=== PATIENT | male | born 1975 | race Caucasian/White ===

== ENCOUNTER → 2016-09-14 09:02 | Outpatient (CLI) | payer BC ==
[2016-05-14 12:44] VITALS: BMI 27.3
[~2016-09-14 09:02] MED LIST: ADVAIR 100/501 DISK INH; BENADRYL25 MG PO; BREO ELLIPTA 21 EACH; BUPROPION XL300 MG PO; CLARITIN 10 MG10 MG PO; COLCRYS0.6 MG PO; DICLOFENAC SODI50 MG PO; FLUTICASONE PRO16 GM NASAL; HYDROCODONE-APA1 TAB PO; KLONOPIN0.5 MG PO; LAMISIL250 MG PO; LEXAPRO10 MG PO; MELATONIN 3 MG1 TAB PO; PREVACID30 MG PO; PRINIVIL20 MG PO; PROAIR HFA8.5 GM INH; SINGULAIR10 MG PO; SPIRIVA RESPIMAT4 G1 INH; VOLTAREN100 GM TOPICAL
[2016-09-14 10:24] LABS: CREATININE - SERUM 1.2 mg/dL (0.6-1.3)
== END | disposition home or self-care (01) ==
LOC: D.CT 09-12 09:00 → D.RT 09-12 10:00 → D.CT 09:02
PROVIDERS: Internal Medicine Pulmonary Disease
DX: R93.8 Abnormal findings on diagnostic imaging of other specified body structures (principal)

== ENCOUNTER 2016-12-04 05:19 | Day surgery (SDC) | payer BC ==
[2016-12-03 14:54] LABS: HEMATOCRIT 39.5 % (42.0-54.0); HEMOGLOBIN 13.6 g/dL (13.5-17.5); MCH 30.4 pg (26.0-34.0); MCHC 34.4 g/dL (31.0-37.0); MCV 88.4 fL (80.0-100.0); MEAN PLATELET VOLUME 9.5 fL (7.4-10.4); RBC 4.47 10x6/uL (4.20-6.10); RDW 13.3 % (11.5-14.5); WBC 5.7 10x3/uL (4.8-10.8)
[~2016-12-04] VITALS: Ht 195.6 cm; Wt 104.3 kg
[2016-12-04 05:55] VITALS: BP 136/78; Ht 195.6 cm; Wt 104.3 kg
--- NOTE | 2016-12-11 10:25 | OP ---
PATIENT NAME: DOT GROVE MEDICAL RECORD: [id number] :79 LOCATION:D.OPS ADMISSION DATE: SURGEON: FATOUMATA MEDRANO MD DATE OF OPERATION: 12/04/2016 PREOPERATIVE DIAGNOSES: Left displaced proximal humerus fracture with greater tuberosity fracture. POSTOPERATIVE DIAGNOSES: Left displaced proximal humerus fracture with greater tuberosity fracture. PROCEDURE PERFORMED: Left open reduction and internal fixation of greater tuberosity proximal humerus fracture. SURGEON: Seth Medrano MD. ANESTHESIA: General with interscalene block for postop pain. CONDITION: The patient tolerated the procedure well, was transferred to the recovery room in stable condition. INDICATIONS: This is a 41-year-old gentleman that fell, landed on his left arm, had a displaced ____ greater tuberosity fracture. We discussed with him the options. He wanted to fix this. We discussed risks, benefits and alternatives including blood loss, scar, pain, need for further procedure, anesthesia risk, nerve, artery and vein injuries, PE, DVT, , and infection. He understood and wished to proceed. We also discussed nerve injuries, specifically the axillary nerve crosses it. OPERATIVE REPORT: The patient was taken to the operating room and placed in supine position. General anesthesia was obtained. The left arm was identified as the correct arm. He did receive an interscalene block in the preop holding area. In the operating room, he was placed in a beach chair position. He was prepped and draped in normal fashion. He received Ancef per protocol. Procedure was begun by making a lateral incision off of the tip of the acromion extending laterally. This was taken down. The deltoid was split bluntly. The axillary nerve was identified and elevated off the bone and then gently retracted. Proximal humerus plate was slid underneath the axillary nerve. I then proceeded to place a pin proximally and distally. Once the plate was in appropriate position, I then proceeded to fill the holes with screws. This was done pulling the piece into position with a #1 [place] wire sutures and pulled the piece down. Once this was verified on AP and lateral views, I then went ahead and just filled the screw holes. Having accomplished this, I took AP and lateral views, verifying the position of the plate, verified the reduction of the fracture. I also verified the axillary nerve crossing the plate. I copiously irrigated. I then closed with #1 Vicryl followed by 2-0 Vicryl, then 3-0 Prolene, half inch Steri-Strips and soft dressing was placed in a sling, awakened and transferred to the recovery room in stable condition, having tolerated the procedure well. TRANSINT:[id number] Voice Confirmation ID: [id number] DOCUMENT ID: [id number] OPERATIVE REPORT [id number] DOT GROVE, FATOUMATA BERRIOS MD at 1025 CC: [id number] DICTATION DATE: 12/04/16 0844 PROFESSIONAL MODEL: 12/04/16 1051 [facility] 12/04/16 [id number] [place] [address]
== END 2016-12-04 10:25 | disposition home or self-care (01) ==
LOC: D.OPS 05:19 → D.PAN 07:00 → D.OPS 09:30
PROVIDERS: Anesthesiology
DX: S42.252A Displaced fracture of greater tuberosity of left humerus, initial encounter for closed fracture (principal); W19.XXXA Unspecified fall, initial encounter; K21.9 Gastro-esophageal reflux disease without esophagitis; Z87.891 Personal history of nicotine dependence

== ENCOUNTER → 2017-04-08 08:42 | Outpatient (CLI) | payer BC ==
[2016-12-04 05:55] VITALS: BMI 27.3
== END | disposition home or self-care (01) ==
LOC: D.RAD 08:42
DX: J45.909 Unspecified asthma, uncomplicated (principal)

== ENCOUNTER 2017-04-23 05:15 | Day surgery (SDC) | payer BC ==
[2017-04-22 08:49] LABS: HEMATOCRIT 43.4 % (42.0-54.0); MCH 29.8 pg (26.0-34.0); MCHC 34.6 g/dL (31.0-37.0); MCV 86.3 fL (80.0-100.0); MEAN PLATELET VOLUME 9.5 fL (7.4-10.4); RBC 5.03 10x6/uL (4.20-6.10); RDW 13.6 % (11.5-14.5); WBC 3.1 10x3/uL (4.8-10.8)
[~2017-04-23] VITALS: Ht 195.6 cm; Wt 93.0 kg
[2017-04-23 12:39] VITALS: BP 123/77; Ht 195.6 cm; Wt 93.0 kg
--- NOTE | 2017-04-23 20:29 | NUR ---
191 IV DC WITH CATHER TIP INTACT
--- NOTE | 2017-04-23 20:46 | NUR ---
[id number] IV DC WITH CATHWER TIP INTACT
--- NOTE | 2017-04-25 09:08 | HP ---
PATIENT: DOT GROVE MEDICAL RECORD: [id number] ACCOUNT: [id number] LOCATION:[facility] : 79 ADMISSION DATE: 04/23/17 HISTORY AND PHYSICAL EXAMINATION PRINCIPAL DIAGNOSIS: Anal condyloma. HISTORY OF PRESENT ILLNESS: The patient has anal condyloma. I am going to plan for a flexible proctoscopy with possible biopsies, anal brushings, as well as ablation of any condylomatous tissue that I could identify with the argon plasma liner worker. The risks, possible complications and alternatives to the procedure were explained to the patient. He elects to proceed. ALLERGIES: No known drug allergies. HOME MEDICATIONS: ProAir, Spiriva, Wellbutrin, Lexapro, Klonopin, Breo, Singulair and Flonase. SOCIAL HISTORY: Ex-smoker. PAST MEDICAL AND SURGICAL HISTORY: Asthma, hypertension, gastroesophageal reflux, depression, hernia repair, left humeral ORIF, chronic back pain and arthritis. PHYSICAL EXAMINATION: GENERAL: The patient does not appear acutely ill. He does not appear chronically ill. VITAL SIGNS: Reviewed. HEAD: External ears appear normal. EYES: Extraocular movements are intact. NECK: Trachea is midline. CHEST: No intercostal retractions. PULMONARY: Nonlabored, no stridor. ABDOMEN: Nontender. IMPRESSION: Anal condylomata. PLAN: As described above. TRANSINT:[id number] Voice Confirmation ID: [id number] DOCUMENT ID: [id number] DONALD MADERA MD at 0908 CC: JUVENTINO WILKS MD and SABI BAKER MD [id number] DICTATION DATE: 04/23/171815 MANAGER FOOD BEVERAGE: 04/23/[address] [facility] 04/23/17 [id number] [place] [address]
--- NOTE | 2017-04-25 09:08 | OP ---
PATIENT NAME: DOT GROVE MEDICAL RECORD: [id number] :79 LOCATION:D.OPS ADMISSION DATE: SURGEON: DONALD MADERA MD DATE OF OPERATION: 04/23/2017 PRINCIPAL DIAGNOSES: 1. Anal condylomata. 2. 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 POSTOPERATIVE DIAGNOSES: 1. Anal condylomata. 2. 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 PROCEDURES: 1. Flexible proctoscopy. 2. Anal evaluation under anesthesia. 3. Excisional biopsy of the anal condyloma which overlies an internal hemorrhoid. Anal brushings for cytology. Ablation of any tissue that appeared to have been condylomatous with the argon plasma cartridge gauger utilizing the right colon setting in the forced mode. OPERATIVE COURSE: The patient was conveyed to the operating room electively on 04/23/2017. General anesthesia was induced by the anesthesia staff. The patient was placed in the lithotomy position. The buttocks and anus were sterilely prepped and draped. U-shaped anal retractors were placed. I examined the anus. I noted one moderately sized condyloma and then some other white areas that were in other areas of the anus overlying the internal hemorrhoids. I excised the condyloma with a scalpel. Flexible proctoscopy was performed with a retroflexion view. I unretroflexed the scope and removed it under direct vision. I inserted the U-shaped anal retractors again. Brushings of the anus were sent for cytology and cytology fluid to check for dysplasia. Any suspicious condylomatous-appearing tissue was then ablated utilizing the argon plasma cartridge gauger with the right colon setting in the forced mode. Gelfoam was applied within the anus and rectum. The patient was then extubated and conveyed to post-anesthesia care unit where he was in stable condition. I will see him in the office in 2-3 weeks. It is very likely I will recommend that we do anal brushings again in 1 year. TRANSINT:[id number] Voice Confirmation ID: [id number] DOCUMENT ID: [id number] DONALD MADERA MD at 0908 CC: [id number] DICTATION DATE: 04/24/172133 PROFESSIONAL ADVISOR: 04/25/17 0044 [facility] 04/23/17 [facility] [address] [place] [address]
== END 2017-04-23 19:30 | disposition home or self-care (01) ==
LOC: D.OPS 05:15 → D.PAN 10:00 → D.OPS 19:30
PROVIDERS: Anesthesiology
DX: A63.0 Anogenital (venereal) warts (principal); K62.82 Dysplasia of anus; K64.8 Other hemorrhoids; K60.1 Chronic anal fissure; J45.909 Unspecified asthma, uncomplicated; Z87.891 Personal history of nicotine dependence; I10 Essential (primary) hypertension; K21.9 Gastro-esophageal reflux disease without esophagitis; F32.9 Major depressive disorder, single episode, unspecified; G89.29 Other chronic pain; M54.5 Low back pain; M19.90 Unspecified osteoarthritis, unspecified site; Z79.899 Other long term (current) drug therapy

== ENCOUNTER → 2017-10-03 09:40 | Outpatient (CLI) | payer BC ==
[2017-04-23 12:39] VITALS: BMI 24.3
== END | disposition home or self-care (01) ==
LOC: D.RT 09:40
DX: J45.909 Unspecified asthma, uncomplicated (principal)

== ENCOUNTER 2018-05-27 06:21 | Day surgery (SDC) | payer BC ==
[~2018-05-27] VITALS: Ht 195.6 cm; Wt 100.0 kg
--- NOTE | ~2018-05-27 | OP ---
PATIENT NAME: DOT GROVE MEDICAL RECORD: [id number] :79 LOCATION:D.OPS ADMISSION DATE: SURGEON: SALAS MADERA MD DATE OF OPERATION: 05/27/2018 PREOPERATIVE DIAGNOSES: 1. Suprapubic and left lower quadrant abdominal pain. 2. History of squamous intraepithelial lesion of the anus, low-grade. 3. History of colon polyps in need of surveillance colonoscopy. POSTOPERATIVE DIAGNOSES: 1. Suprapubic and left lower quadrant abdominal pain. 2. History of squamous intraepithelial lesion of the anus, low-grade, with possible anal sessile lesions. 3. Right inferior prostate nodule. 4. History of colon polyps in need of surveillance colonoscopy. PROCEDURES: 1. Total colonoscopy to the cecum. 2. Hot biopsy forceps of plaque-like white anal lesions. 3. Anal brushings for cytology. SURGEON: Salas Madera MD PREPARATION CENTER COORDINATOR: None. BLOOD LOSS: Minimal. ANESTHESIA: IV sedation. COMPLICATIONS: None. The risks, possible complications and alternatives to procedure were explained to the patient. He elects to proceed. The reason for the anesthesia staff being present during the procedure includes anxiety regarding the procedure. PROCEDURE IN DETAIL: The patient was conveyed to endoscopy suite electively on 05/27/2018. IV sedation was induced by anesthesia staff. The patient was placed in the [place] position. A digital rectal examination was performed. A colonoscope was inserted through the anus. It was easily advanced to the cecum. I intubated the ileum which appeared normal. I slowly withdrew the endoscope. A combination of normal imaging and narrow band imaging were utilized. I dragged the folds. The pullback was greater than 18-minute pullback. I irrigated and aspirated extensively. A retroflexed view was obtained in the rectum. There were plaque lesions which were biopsied utilizing the hot biopsy forceps technique. I then unretroflexed the scope and removed under direct vision. I then took an anal brush. I vigorously brushed the anus and the brushings were sent for cytology. The patient was then conveyed back to his room. I will see him in the office in 2-3 weeks. I will plan for his next anal brushing procedure to take place in 1 OPERATIVE REPORT [id number] DOT GROVE year. TRANSINT:[id number] Voice Confirmation ID: [id number] DOCUMENT ID: [id number] SALAS MADERA MD at 1328 CC: SABI BAKER [id number] DICTATION DATE: 05/27/18 1010 SCARIFIER OPERATOR: 05/27/18 1051 [facility] 05/27/18 [id number] [place] [id number]
--- NOTE | ~2018-05-27 | HP ---
PATIENT: DOT GROVE MEDICAL RECORD: [id number] ACCOUNT: [id number] LOCATION:[facility] : 79 ADMISSION DATE: 05/27/18 PCP: SABI BAKER MD HISTORY AND PHYSICAL EXAMINATION CHIEF COMPLAINT: Abdominal pain. HISTORY OF PRESENT ILLNESS: The patient has had a history of squamous intraepithelial lesion, low grade of the anus. He is here for anal brushings. Additionally, he has had some lower abdominal pain. He will undergo colonoscopy as well. No rectal bleeding. No melena. The patient does have a history of colon polyps. PAST MEDICAL AND SURGICAL HISTORY: Anxiety, asthma. HOME MEDICINES: Please see the nursing list. ALLERGIES: No known drug allergies. PHYSICAL EXAMINATION: GENERAL: The patient does not appear acutely ill. He does not appear chronically ill. VITAL SIGNS: Reviewed. EARS: External ears appear normal. EYES: Extraocular movements are intact. NECK: Trachea is midline. CHEST: No intercostal retractions. PULMONARY: Nonlabored, no stridor. ABDOMEN: No peritonitis. IMPRESSION: 1. Lower abdominal pain. 2. History of low-grade squamous intraepithelial lesion. PLAN: Anal brushings. Colonoscopy. TRANSINT:[id number] Voice Confirmation ID: [id number] DOCUMENT ID: [id number] DONALD MADERA MD at 1328 CC: SABI BAKER [id number] DICTATION DATE: 05/27/1834 JUVENILE COUNSELOR: 05/27/18 0946 [facility] 05/27/18 [id number] [place] [address]
[2018-05-27 07:07] LABS: HEMATOCRIT 44.2 % (42.0-54.0); HEMOGLOBIN 15.9 g/dL (13.5-17.5); MCH 31.2 pg (26.0-34.0); MCV 86.8 fL (80.0-100.0); MEAN PLATELET VOLUME 9.5 fL (7.4-10.4); RBC 5.09 10x6/uL (4.20-6.10); RDW 13.3 % (11.5-14.5); WBC 8.1 10x3/uL (4.8-10.8)
[2018-05-27] MEDS ORDERED: MEDROL DOSE PACK4 MG PO (07:23)
[2018-05-27 07:29] VITALS: Ht 195.6 cm; Wt 100.0 kg
== END 2018-05-27 11:09 | disposition home or self-care (01) ==
LOC: D.OPS 06:21
PROVIDERS: Anesthesiology
DX: K62.82 Dysplasia of anus (principal); N40.2 Nodular prostate without lower urinary tract symptoms; Z86.010 Personal history of colon polyps; F41.9 Anxiety disorder, unspecified; J45.909 Unspecified asthma, uncomplicated; Z01.812 Encounter for preprocedural laboratory examination

== ENCOUNTER → 2018-06-02 10:06 | Outpatient (CLI) | payer BC ==
[2018-05-27 07:29] VITALS: BMI 26.1
[~2018-06-02 10:06] MED LIST changes: +MEDROL DOSE PACK4 MG PO; +TRELEGY; +ZYRTEC10 MG PO
[2018-06-02 10:41] LABS: CREATININE - SERUM 0.9 mg/dL (0.6-1.3)
== END | disposition home or self-care (01) ==
LOC: D.CT 10:06
PROVIDERS: Internal Medicine Pulmonary Disease
DX: D86.0 Sarcoidosis of lung (principal)

== ENCOUNTER 2018-06-10 09:14 | Outpatient (CLI) | payer BC ==
[~2018-06-10] VITALS: Ht 195.6 cm; Wt 96.4 kg
[~2018-06-10 09:14] MED LIST changes: -TRELEGY; -ZYRTEC10 MG PO
[2018-06-10 09:41] LABS: BASOPHILS 0.3 % (0-2); EOSINOPHILS 5.8 % (0-7); HEMATOCRIT 42.5 % (42.0-54.0); HEMOGLOBIN 15.1 g/dL (13.5-17.5); IMMATURE GRANULOCYTES 0.3 % (0-5); LYMPHOCYTES 19.5 % (15-50); MCH 31.1 pg (26.0-34.0); MCHC 35.5 g/dL (31.0-37.0); MCV 87.4 fL (80.0-100.0); MEAN PLATELET VOLUME 9.5 fL (7.4-10.4); MONOCYTES 14.4 % (2-11); NEUTROPHILS 59.7 % (40-80); PLATELET COUNT 158 10x3/uL (130-400); RBC 4.86 10x6/uL (4.20-6.10); RDW 13.2 % (11.5-14.5)
[2018-06-10 09:56] LABS: APTT 29.7 SECONDS (22.8-39.4); INR 0.97 (0.85-1.17); PROTIME 12.5 SECONDS (11.6-15.0)
[2018-06-10] MEDS ORDERED: TRELEGY (10:14)
[2018-06-10] MEDS ORDERED: ZYRTEC10 MG PO (10:14)
[2018-06-10 10:31] VITALS: BP 129/92; Ht 195.6 cm; Wt 96.4 kg
[2018-06-10 15:52] LABS: EOS BF 1 %; MACROPHAGES BF 63 %; MESOTHELIALS BF 5 %
[2018-06-10 16:00] LABS: NEUT - BF 0 %
[2018-06-11 13:18] LABS: FUNGUS STAIN Final report (())
[2018-06-11 20:08] LABS: ACID FAST SMEAR Negative (()); AFB SPECIMEN PROCESSING Concentration (())
[2018-06-19 08:21] LABS: VIRAL - RESULT No virus isolated. (())
[2018-07-08 07:26] LABS: FUNGUS MYCOLOGY CULTURE Final report (())
== END 2018-06-10 14:35 | disposition home or self-care (01) ==
LOC: D.OPS 09:14
PROVIDERS: Internal Medicine Pulmonary Disease
DX: D86.0 Sarcoidosis of lung (principal); J45.909 Unspecified asthma, uncomplicated; J98.4 Other disorders of lung; K21.9 Gastro-esophageal reflux disease without esophagitis; Z01.812 Encounter for preprocedural laboratory examination

== ENCOUNTER → 2018-06-18 15:17 | Outpatient (CLI) | payer BC ==
[2018-06-10 10:31] VITALS: BMI 25.2
[~2018-06-18 15:17] MED LIST changes: +TRELEGY; +ZYRTEC10 MG PO
== END | disposition home or self-care (01) ==
LOC: D.LAB 15:17
DX: N42.89 Other specified disorders of prostate (principal)

== ENCOUNTER → 2018-09-08 14:56 | Outpatient (CLI) | payer BC ==
[2018-06-10 10:31] VITALS: BMI 25.2
== END | disposition home or self-care (01) ==
LOC: D.RAD 14:56
DX: D86.0 Sarcoidosis of lung (principal)

== ENCOUNTER → 2019-03-04 07:46 | Outpatient (CLI) | payer BC ==
[2018-06-10 10:31] VITALS: BMI 25.2
== END | disposition home or self-care (01) ==
LOC: D.CT 07:46
PROVIDERS: ATTEND Internal Medicine Pulmonary Disease
DX: D86.0 Sarcoidosis of lung (principal)

== ENCOUNTER → 2019-09-15 09:31 | Outpatient (CLI) | payer BC ==
[2018-06-10 10:31] VITALS: BMI 25.2
== END | disposition home or self-care (01) ==
LOC: D.RAD 09:31
PROVIDERS: ATTEND Internal Medicine Pulmonary Disease
DX: D86.0 Sarcoidosis of lung (principal)

== ENCOUNTER → 2020-01-13 13:44 | Outpatient (CLI) | payer BC ==
[2018-06-10 10:31] VITALS: BMI 25.2
== END | disposition home or self-care (01) ==
LOC: D.CT 10:30
PROVIDERS: ATTEND Family Medicine
DX: G44.53 Primary thunderclap headache (principal)

== ENCOUNTER 2020-05-31 08:41 | Day surgery (SDC) | payer BC ==
[~2020-05-31] VITALS: Ht 195.6 cm; Wt 90.9 kg
[2020-05-31 09:35] LABS: BASOPHILS 0.8 % (0-2); EOSINOPHILS 3.2 % (0-7); HEMATOCRIT 48.2 % (42.0-54.0); HEMOGLOBIN 16.9 g/dL (13.5-17.5); IMMATURE GRANULOCYTES 0.3 % (0-5); LYMPHOCYTES 24.3 % (15-50); MCH 32.9 pg (26.0-34.0); MCHC 35.1 g/dL (31.0-37.0); MCV 93.8 fL (80.0-100.0); MEAN PLATELET VOLUME 9.6 fL (7.4-10.4); MONOCYTES 15.9 % (2-11); NEUTROPHILS 55.5 % (40-80); RBC 5.14 10x6/uL (4.20-6.10); RDW 13.2 % (11.5-14.5); WBC 3.8 10x3/uL (4.8-10.8)
[2020-05-31 09:38] LABS: PLATELET COUNT 195 10x3/uL (130-400)
[2020-05-31 09:42] LABS: APTT 25.1 SECONDS (22.8-39.4); CALC OSMOLALITY 273 mosm/kg (275-300); CALCIUM 9.1 mg/dL (8.5-10.1); CARBON DIOXIDE 29.1 mmol/L (21.0-32.0); CHLORIDE - SERUM 103 mmol/L (98-107); CREATININE - SERUM 0.9 mg/dL (0.6-1.3); GLUCOSE 103 mg/dL (74-106); INR 0.96 (0.85-1.17); POTASSIUM - SERUM 3.5 mmol/L (3.5-5.1); PROTIME 12.7 SECONDS (11.6-15.0); SODIUM 138 mmol/L (136-145); UREA NITROGEN 8 mg/dL (7-18); eGFR NON AFRICAN AMERICAN > 90 mL/min (90-120)
[2020-05-31 09:47] VITALS: BP 139/91; Ht 195.6 cm; Wt 90.9 kg
[2020-05-31] MEDS ORDERED: LISINOPRIL20 MG PO (10:15)
[2020-05-31] MEDS ORDERED: PREDNISONE10 MG PO (10:16)
--- NOTE | 2020-06-01 17:51 | OP ---
PATIENT NAME: DOT GROVE MEDICAL RECORD: [id number] :79 LOCATION:D.OPS ADMISSION DATE: SURGEON: DONALD MADERA MD DATE OF OPERATION: 05/31/2020 PREOPERATIVE DIAGNOSES: 1. History of colon polyps. 2. History of anal dysplasia. POSTOPERATIVE DIAGNOSES: 1. History of colon polyps. 2. History of anal dysplasia. 3. No evidence of colon or rectal masses or polyps. 4. Small verrucous appearing lesion of the anus. PROCEDURES: 1. Total colonoscopy to cecum. 2. Hot biopsy of what appeared to be a verrucous lesion of the anus. 3. Anal brushings for cytology. SURGEON: Donald Madera MD DENTAL CHAIR ASSEMBLER: None. BLOOD LOSS: Minimal. ANESTHESIA: IV sedation. COMPLICATIONS: None. The risks, possible complications and alternatives to the procedure were explained to the patient. He elects to proceed. OPERATIVE COURSE: IV sedation was induced by the anesthesia staff. A digital rectal examination was performed. A prostate nodule was noted superiorly. A colonoscope was inserted through the anus. It was easily advanced to the cecum. The prep was adequate. I slowly withdrew the colonoscope. I irrigated and aspirated extensively. A combination of normal imaging and narrow band imaging were utilized. I dragged the folds. The pullback was greater than a 15-minute pullback. On retroflexion, a verrucous appearing lesion near an internal hemorrhoid. This was removed in its entirety utilizing the hot biopsy forceps technique. I then unretroflexed the scope and removed it under direct vision. I then took an anal brush and vigorously brushed the anus to obtain cells for cytology. The patient was then conveyed back to his room. He is going to be dismissed home on hydrocodone as I anticipate that he will have some pain from the anal brushings. TRANSINT:[id number] Voice Confirmation ID: [id number] DOCUMENT ID: [id number] OPERATIVE REPORT [id number] DOT GROVE ROBERT MD at 1756 CC: BREANNATREVOR ANTONINA [id number] DICTATION DATE: 05/31/20 1436 MEDICAID BILLING CLERK: 06/01/20 0004 [facility] 05/31/20 [facility] [address] [place] [address]
--- NOTE | 2020-06-01 17:51 | HP ---
PATIENT: DOT GROVE MEDICAL RECORD: [id number] ACCOUNT: [id number] LOCATION:D.OPS : 79 ADMISSION DATE: 05/31/20 PCP: SABI BAKER MD HISTORY AND PHYSICAL EXAMINATION HISTORY OF PRESENT ILLNESS: The patient has a history of squamous intraepithelial lesion of the anus, which was low grade. Also, a history of colon polyps. He underwent a colonoscopy as well as hot biopsy forceps of plaque-like white anal lesions and anal brushings for cytology. He has noted no anal pain. No rectal bleeding. PAST MEDICAL AND SURGICAL HISTORY: Hernia repair, ORIF of the humerus, left shoulder surgery, arthritis, gastroesophageal reflux, hypertension, sarcoidosis, chronic bronchitis, asthma. SOCIAL HISTORY: Former smoker. HOME MEDICINES: He is not on a blood thinner. ALLERGIES: No known drug allergies. PHYSICAL EXAMINATION: GENERAL: The patient does not appear acutely ill. He does not appear chronically ill. VITAL SIGNS: Reviewed. EARS: External ears appear normal. EYES: Extraocular movements are intact. NECK: Trachea midline. CHEST: No intercostal retractions. PULMONARY: Nonlabored, no stridor. IMPRESSION: 1. History of colon polyps. 2. History of intraepithelial neoplasia grade I. PLAN: Colonoscopy. Anal brushings for cytology. TRANSINT:[id number] Voice Confirmation ID: [id number] DOCUMENT ID: [id number] DONALD MADERA MD at 1751 CC: SABI BAKER [id number] DICTATION DATE: 05/31/20 1240 SKIMMER REVERBERATORY: 05/31/[address] [facility] 05/31/20 [id number] [place] [id number]
== END 2020-05-31 14:05 | disposition home or self-care (01) ==
LOC: D.OPS 08:41
PROVIDERS: Anesthesiology; ATTEND Internal Medicine Pulmonary Disease
DX: Z86.010 Personal history of colon polyps (principal); Z87.430 Personal history of prostatic dysplasia; K62.82 Dysplasia of anus; K21.9 Gastro-esophageal reflux disease without esophagitis; I10 Essential (primary) hypertension; J45.909 Unspecified asthma, uncomplicated; D86.0 Sarcoidosis of lung; J15.1 Pneumonia due to Pseudomonas; J98.4 Other disorders of lung; J47.9 Bronchiectasis, uncomplicated; J30.1 Allergic rhinitis due to pollen; J42 Unspecified chronic bronchitis; D72.821 Monocytosis (symptomatic); F41.9 Anxiety disorder, unspecified; Z87.891 Personal history of nicotine dependence; E78.5 Hyperlipidemia, unspecified; K90.41 Non-celiac gluten sensitivity; E73.9 Lactose intolerance, unspecified; R06.83 Snoring; R63.5 Abnormal weight gain